=== PATIENT | female | born 1950 | race Caucasian/White ===

== ENCOUNTER 2019-01-13 17:05 | Inpatient (IN) | payer MEDICARE, MEDICAID ==
[~2019-01-13] VITALS: Ht 167.6 cm; Wt 104.5 kg
[~2019-01-13 17:05] MED LIST: ALBU8.5H2 IH; AMLO10TA6 PO; AZI25OT PO; DIPH-681 PO; DOXY100C43 PO; ESCI10TA54 PO; FAMO20TA8 PO; FLUT1BLS3 MT; FURO-150 PO; LISI10TA4 PO; MELA3TAB64 PO; MONT10TA21 PO; POTA8CAP20 PO; PRED5TAB PO; ROFL500T7 PO; SPIIN IH; oxygen INH
[2019-01-13 17:31] LABS: ABG BASE EXCESS 2.3 mmol/L (-2.0-3.0); ABG HCO3 28.5 mmol/L (22.0-26.0); ABG OXYGEN SATURATION 95.3 % (95-98); ABG PCO2 (T) 50.9 mmHg (35.0-45.0); ABG PH (T) 7.366 (7.350-7.450); ALLEN'S TEST Positive; FCOHb 0.8 % (0.5-1.5); FLOW 3 L/min; FMetHb 0.1 % (0.3-1.12); FO2Hb 94.4 % (94-100); TOTAL HEMOGLOBIN 12.7 G/dl (12.0-16.0)
[2019-01-13 17:43] LABS: BASOPHILS % (AUTO) 0.1 % (0-1); EOSINOPHILS % (AUTO) 0.2 % (0-6); HEMATOCRIT 35.7 % (35.0-45.0); HEMOGLOBIN 11.7 g/dl (12.0-16.0); LYMPHOCYTES # (AUTO) 1.5 X10'3 (1.1-4.8); LYMPHOCYTES % (AUTO) 8.3 % (21-51); MEAN CORPUSCULAR HEMOGLOBIN 27.5 PG (27.0-31.0); MEAN CORPUSCULAR HGB CONC 32.7 g/dL (33.0-36.5); MEAN CORPUSCULAR VOLUME 84.1 FL (78-98); MEAN PLATELET VOLUME 6.4 FL (7.4-10.4); MONOCYTES # (AUTO) 0.3 X10'3 (0-0.9); MONOCYTES % (AUTO) 1.6 % (2-12); NEUTROPHILS # (AUTO) 16.5 X10'3 (1.8-7.7); NEUTROPHILS % (AUTO) 89.8 % (42-75); PLATELET COUNT 581 X10'3 (140-440); RED BLOOD COUNT 4.24 X10'6 (4.20-5.60); RED CELL DISTRIBUTION WIDTH 14.6 % (11.5-14.5); WHITE BLOOD COUNT 18.4 X10'3 (4.5-11.0)
[2019-01-13 17:57] LABS: ALANINE AMINOTRANSFERASE 31 U/L (12-78); ALBUMIN 3.4 G/DL (3.4-5.0); ALBUMIN/GLOBULIN RATIO 0.8 (1.1-1.5); ALKALINE PHOSPHATASE 67 IU/L (46-116); ANION GAP 8 (8-16); ASPARTATE AMINO TRANSFERASE 14 U/L (10-37); BILIRUBIN,TOTAL 0.3 MG/DL (0.1-1.0); BLOOD UREA NITROGEN 18 MG/DL (7-18); BUN/CREATININE RATIO 13.4 (6.6-38.0); CALCIUM 9.4 MG/DL (8.5-10.1); CHLORIDE 97 MMOL/L (99-107); CREATININE 1.34 MG/DL (0.40-0.90); GLUCOSE 236 MG/DL (70-104); POTASSIUM 5.1 MMOL/L (3.5-5.1); SODIUM 136 MMOL/L (135-145); TOTAL CARBON DIOXIDE 31.3 MMOL/L (24-32); TOTAL PROTEIN 7.6 G/DL (6.4-8.2); eGFR 39 ML/MIN
[2019-01-13 17:58] LABS: D-DIMER 0.27 MG/L FEU (0-0.50); PARTIAL THROMBOPLASTIN TIME 23 SECONDS (22-32)
[2019-01-13] MEDS ORDERED: CLON0.1T2 PO (18:20)
[2019-01-13] MEDS ORDERED: DULO20CA18 PO (18:20)
[2019-01-13] MEDS ORDERED: LISI-604 PO (18:30)
[2019-01-13] MEDS ORDERED: LANTUS SQ (18:30)
[2019-01-13] MEDS ORDERED: TIOT4MIS3 PO (18:30)
[2019-01-13] MEDS ORDERED: LORA10TA7 PO (18:30)
[2019-01-13] MEDS ORDERED: PRED10TA PO (18:30)
[2019-01-13] MEDS ORDERED: BUSP10TA3 PO (18:30)
[2019-01-13] MEDS ORDERED: FLUT1AER PO (18:33)
[2019-01-13] MEDS ORDERED: dexamethasone sod phosphate 10mg/ml inj IV STA (20:48)
[2019-01-13] MEDS ORDERED: ipratropium/albuterol 3ml nebule NEB ONE (20:50)
--- NOTE | 2019-01-13 21:08 | NUR ---
Break RN; RT at bedside for SVN Tx
[2019-01-13] MEDS ORDERED: potassium CL 10mEq/100ml bag 100 ML IV PRN ×2 (21:40)
[2019-01-13] MEDS ORDERED: potassium Cl 20 mEq SR tablet PO PRN ×4 (21:40)
[2019-01-13] MEDS ORDERED: acetaminophen 325mg tablet PO PRN (21:40)
[2019-01-13] MEDS ORDERED: ondansetron/PF 4mg/2ml inj IV PRN (21:40)
[2019-01-13] MEDS ORDERED: docusate sod 100mg capsule PO PRN (21:40)
[2019-01-13] MEDS ORDERED: mag hydrox/Alum hydrox/simeth 30ml oral suspension PO PRN (21:40)
[2019-01-13] MEDS ORDERED: glucagon, human recombinant 1mg kit SUBCUT PRN (21:50)
[2019-01-13] MEDS ORDERED: MESSAGE TO PHARMACY PO ONE (21:50)
[2019-01-13] MEDS ORDERED: dextrose ORAL solution 15 GM/59 ML bottle PO PRN ×2 (21:50)
[2019-01-13] MEDS ORDERED: dextrose 50%-water 50ml dispensing syringe IV PRN ×2 (21:50)
[2019-01-13 22:19] LABS: HEMOGLOBIN A1C 7.1 % (4.5-6.2)
[2019-01-13 23:00] VITALS: BP 123/50
[2019-01-13] MEDS: normal saline 1000ml 1,000 ML IV SCH ×2 (23:22→23:26)
[2019-01-13] MEDS: methylPREDNISolone sod succ/PF 40mg inj. IV SCH (23:26)
[2019-01-14] MEDS ORDERED: LORazepam 1 MG tablet PO ONE (01:40)
[2019-01-14] MEDS: ipratropium/albuterol 3ml nebule NEB SCH ×3 (02:04→14:00)
[2019-01-14 05:44] LABS: BASOPHILS % (AUTO) 0.1 % (0-1); EOSINOPHILS % (AUTO) 0 % (0-6); HEMATOCRIT 34.9 % (35.0-45.0); HEMOGLOBIN 11.5 g/dl (12.0-16.0); LYMPHOCYTES # (AUTO) 1.4 X10'3 (1.1-4.8); LYMPHOCYTES % (AUTO) 7.6 % (21-51); MEAN CORPUSCULAR HEMOGLOBIN 27.8 PG (27.0-31.0); MEAN CORPUSCULAR HGB CONC 32.9 g/dL (33.0-36.5); MEAN CORPUSCULAR VOLUME 84.3 FL (78-98); MEAN PLATELET VOLUME 6.6 FL (7.4-10.4); MONOCYTES # (AUTO) 0.2 X10'3 (0-0.9); MONOCYTES % (AUTO) 0.9 % (2-12); NEUTROPHILS # (AUTO) 16.7 X10'3 (1.8-7.7); NEUTROPHILS % (AUTO) 91.4 % (42-75); PLATELET COUNT 549 X10'3 (140-440); RED BLOOD COUNT 4.14 X10'6 (4.20-5.60); RED CELL DISTRIBUTION WIDTH 14.2 % (11.5-14.5); WHITE BLOOD COUNT 18.3 X10'3 (4.5-11.0)
[2019-01-14 06:00] LABS: ALANINE AMINOTRANSFERASE 29 U/L (12-78); ALBUMIN 3.1 G/DL (3.4-5.0); ALBUMIN/GLOBULIN RATIO 0.7 (1.1-1.5); ALKALINE PHOSPHATASE 57 IU/L (46-116); ANION GAP 7 (8-16); ASPARTATE AMINO TRANSFERASE 14 U/L (10-37); BILIRUBIN,TOTAL 0.3 MG/DL (0.1-1.0); BLOOD UREA NITROGEN 17 MG/DL (7-18); BUN/CREATININE RATIO 14.4 (6.6-38.0); CHLORIDE 99 MMOL/L (99-107); CREATININE 1.18 MG/DL (0.40-0.90); GLUCOSE 217 MG/DL (70-104); MAGNESIUM 1.6 MG/DL (1.5-2.4); POTASSIUM 4.9 MMOL/L (3.5-5.1); SODIUM 137 MMOL/L (135-145); TOTAL CARBON DIOXIDE 31.3 MMOL/L (24-32); TOTAL PROTEIN 7.3 G/DL (6.4-8.2); eGFR 45 ML/MIN
--- NOTE | 2019-01-14 06:50 | NUR ---
Patient in room [facility]. I have received report from ZAYNAB Bergeron and had the opportunity to ask questions and assume patient care.
[2019-01-14 06:54] LABS: CHOL/HDL RATIO 3.9 (0.00-4.99); CHOLESTEROL 224 MG/DL (0-200); HDL CHOLESTEROL 58 MG/DL (35-60); LDL CHOLESTEROL 151 MG/DL (50-100); TRIGLYCERIDES 118 MG/DL (20-135)
--- NOTE | 2019-01-14 06:54 | NUR ---
Problems reprioritized. Patient report given, questions answered & plan of care reviewed with REANNA. Addendum: 01/14/19 at 0655 by Gal Jones RN Amended: Links added.
[2019-01-14 08:00] VITALS: BP 130/58
[2019-01-14] MEDS ORDERED: furosemide 20MG tablet PO SCH (08:00)
[2019-01-14] MEDS: albuterol 2.5 MG/3 ML nebule NEB SCH ×2 (08:00→19:45)
[2019-01-14] MEDS: Stiolto Respimat Inhal Spray IH SCH (08:00)
[2019-01-14] MEDS: busPIRone 5mg tablet PO SCH ×2 (08:34→20:31)
[2019-01-14] MEDS: DOXYCYCLINE 100MG CAPSULE PO SCH ×2 (08:34→20:33)
[2019-01-14] MEDS: duloxetine 20mg capsule.DR PO SCH (08:34)
[2019-01-14] MEDS: methylPREDNISolone sod succ/PF 40mg inj. IV SCH ×3 (08:34→23:56)
[2019-01-14] MEDS: loratadine 10mg tablet PO SCH (08:34)
[2019-01-14] MEDS: montelukast 10mg tablet PO SCH (08:34)
[2019-01-14] MEDS: cloNIDine 0.1 mg tablet PO SCH ×2 (08:34→20:32)
[2019-01-14] MEDS: ESCITALOPRAM OXALATE 5 MG TABLET PO SCH (08:35)
[2019-01-14] MEDS: enoxaparin 40mg/0.4ml syringe SQ SCH (08:36)
[2019-01-14] MEDS: budesonide 0.5mg/2ml UD nebule IH SCH ×2 (09:13→19:45)
[2019-01-14] MEDS ORDERED: FLU VACC QS2019-20 36MOS UP/PF 60 MCG/0.5 ML SYRINGE IMVAC ONE (10:00)
[2019-01-14] MEDS: furosemide 20 MG/2 ML vial IV SCH ×2 (10:30→20:31)
[2019-01-14 12:00] VITALS: BP 150/60
--- NOTE | 2019-01-14 15:20 | NUR ---
DM consult: Patient's A1c is 7.1. Per documented hx patient's A1c generally ranges 5.2-6.3. Attempted visit with pt at bedside however pt was unavailable. Per RT note pt requesting to sleep at this time. Will f/u with pt at another time to provide DM education with referral to outpatient DM class. Pt currently on heart healthy CHO controlled diet, pending documentation of PO intake. Will continue to follow. Addendum: 01/14/19 at [address] Amended: Links added.
--- NOTE | 2019-01-14 18:27 | NUR ---
Problems reprioritized. Patient report given, questions answered & plan of care reviewed with ZAYNAB Bergeron.
[2019-01-14 18:40] VITALS: BP 159/78
[2019-01-14] MEDS: lactobacillus rhamnosus 10,000 MMU CELLS/CAPSULE PO SCH (20:38)
[2019-01-14] MEDS: lisinopril 10 MG tablet PO SCH (20:38)
[2019-01-14] MEDS: Melatonin 3mg tablet PO SCH (20:38)
[2019-01-14] MEDS: insulin glargine (Lantus) pen - multi-dose SQ SCH (22:42)
[2019-01-15] VITALS: BP 152/68
[2019-01-15] MEDS: albuterol 2.5 MG/3 ML nebule NEB SCH (02:00)
[2019-01-15] MEDS: ipratropium/albuterol 3ml nebule NEB SCH ×5 (02:03→20:34)
[2019-01-15] MEDS ORDERED: albuterol 2.5 MG/3 ML nebule NEB PRN (02:40)
[2019-01-15 05:15] LABS: BASOPHILS % (AUTO) 0 % (0-1); EOSINOPHILS % (AUTO) 0 % (0-6); HEMATOCRIT 33.6 % (35.0-45.0); LYMPHOCYTES # (AUTO) 1.4 X10'3 (1.1-4.8); LYMPHOCYTES % (AUTO) 6.2 % (21-51); MEAN CORPUSCULAR HEMOGLOBIN 27.5 PG (27.0-31.0); MEAN CORPUSCULAR HGB CONC 32.8 g/dL (33.0-36.5); MEAN CORPUSCULAR VOLUME 83.6 FL (78-98); MEAN PLATELET VOLUME 6.5 FL (7.4-10.4); MONOCYTES # (AUTO) 0.6 X10'3 (0-0.9); MONOCYTES % (AUTO) 2.5 % (2-12); NEUTROPHILS # (AUTO) 20.9 X10'3 (1.8-7.7); NEUTROPHILS % (AUTO) 91.3 % (42-75); PLATELET COUNT 577 X10'3 (140-440); RED BLOOD COUNT 4.01 X10'6 (4.20-5.60); RED CELL DISTRIBUTION WIDTH 14.3 % (11.5-14.5); WHITE BLOOD COUNT 22.9 X10'3 (4.5-11.0)
[2019-01-15 05:45] LABS: ALANINE AMINOTRANSFERASE 26 U/L (12-78); ALBUMIN 3.1 G/DL (3.4-5.0); ALBUMIN/GLOBULIN RATIO 0.8 (1.1-1.5); ALKALINE PHOSPHATASE 51 IU/L (46-116); ANION GAP 6 (8-16); ASPARTATE AMINO TRANSFERASE 13 U/L (10-37); BILIRUBIN,TOTAL 0.4 MG/DL (0.1-1.0); BLOOD UREA NITROGEN 24 MG/DL (7-18); BUN/CREATININE RATIO 23.3 (6.6-38.0); CALCIUM 8.7 MG/DL (8.5-10.1); CHLORIDE 98 MMOL/L (99-107); CREATININE 1.03 MG/DL (0.40-0.90); GLUCOSE 180 MG/DL (70-104); MAGNESIUM 1.7 MG/DL (1.5-2.4); POTASSIUM 4.6 MMOL/L (3.5-5.1); SODIUM 136 MMOL/L (135-145); TOTAL CARBON DIOXIDE 32.4 MMOL/L (24-32); eGFR 53 ML/MIN
--- NOTE | 2019-01-15 06:50 | NUR ---
Problems reprioritized. Patient report given, questions answered & plan of care reviewed with REANNA. Addendum: 01/15/19 at 0650 by Gal Jones RN Amended: Links added.
--- NOTE | 2019-01-15 06:50 | NUR ---
Patient in room [facility]. I have received report from ZAYNAB Bergeron and had the opportunity to ask questions and assume patient care.
[2019-01-15] MEDS: budesonide 0.5mg/2ml UD nebule IH SCH ×2 (07:22→20:33)
[2019-01-15 08:00] VITALS: BP 117/73
[2019-01-15] MEDS ORDERED: enoxaparin 40mg/0.4ml syringe SUBCUT SCH (08:00)
[2019-01-15] MEDS: Stiolto Respimat Inhal Spray IH SCH (08:00)
[2019-01-15] MEDS: cloNIDine 0.1 mg tablet PO SCH ×2 (08:32→20:54)
[2019-01-15] MEDS: busPIRone 5mg tablet PO SCH ×2 (08:32→20:55)
[2019-01-15] MEDS: loratadine 10mg tablet PO SCH (08:33)
[2019-01-15] MEDS: lactobacillus rhamnosus 10,000 MMU CELLS/CAPSULE PO SCH ×2 (08:33→20:54)
[2019-01-15] MEDS: duloxetine 20mg capsule.DR PO SCH (08:33)
[2019-01-15] MEDS: ESCITALOPRAM OXALATE 5 MG TABLET PO SCH (08:34)
[2019-01-15] MEDS: montelukast 10mg tablet PO SCH (08:34)
[2019-01-15] MEDS: DOXYCYCLINE 100MG CAPSULE PO SCH ×2 (08:35→20:55)
[2019-01-15] MEDS: enoxaparin 40mg/0.4ml syringe SQ SCH (08:37)
[2019-01-15] MEDS: furosemide 20 MG/2 ML vial IV SCH ×2 (08:38→20:55)
[2019-01-15] MEDS: methylPREDNISolone sod succ/PF 40mg inj. IV SCH ×2 (08:38→16:53)
[2019-01-15] MEDS: insulin Lispro (HumaLOG) vial - multi-dose SQ SCH ×3 (08:52→18:05)
[2019-01-15 12:00] VITALS: BP 129/63
--- NOTE | 2019-01-15 16:34 | NUR ---
F/U for DM consult: Pt seen at bedside states she believes her A1c has increased r/t high stress and adjustments made to home Prednisone rx. Pt provided with written and verbal DM education with referral to outpatient DM class and RD contact information. Pt endorses a good appetite which is evident with documented 75-100% PO intake on heart healthy CHO controlled diet meeting nutrient needs. Pt states she doesn't have any issues with dairy other than gets diarrhea if she consumes milk. Pt requests no milk to drink and would like Swedish yogurt BIDLD. LBM 01/14 however pt reports no BM since admit and requests prune juice with breakfast tomorrow. All food preferences d/w dietary. Will continue to follow. Addendum: 01/15/19 at [address] Amended: Links added.
[2019-01-15] MEDS: acetaminophen 325mg tablet PO PRN (17:25)
[2019-01-15 18:00] VITALS: BP 126/54
--- NOTE | 2019-01-15 18:44 | NUR ---
Problems reprioritized. Patient report given, questions answered & plan of care reviewed with ZAYNAB Guevara.
--- NOTE | 2019-01-15 18:46 | NUR ---
Patient in room [facility]. I have received report from ZAYNAB Shaver and had the opportunity to ask questions and assume patient care.
[2019-01-15] MEDS: lisinopril 10 MG tablet PO SCH (20:54)
[2019-01-15] MEDS: Melatonin 3mg tablet PO SCH (20:54)
[2019-01-15] MEDS: insulin glargine (Lantus) pen - multi-dose SQ SCH (21:07)
[2019-01-15] MEDS ORDERED: LORazepam 0.5 MG tablet PO PRN (21:25)
[2019-01-16] VITALS: BP 141/68
[2019-01-16] MEDS: methylPREDNISolone sod succ/PF 40mg inj. IV SCH ×2 (00:28→08:29)
[2019-01-16] MEDS: ipratropium/albuterol 3ml nebule NEB SCH ×3 (02:42→14:28)
[2019-01-16 05:55] LABS: EOSINOPHILS % (AUTO) 0 % (0-6); HEMATOCRIT 35.7 % (35.0-45.0); MONOCYTES # (AUTO) 0.6 X10'3 (0-0.9)
[2019-01-16 05:57] LABS: BASOPHILS % (AUTO) 0 % (0-1); HEMOGLOBIN 11.7 g/dl (12.0-16.0); LYMPHOCYTES # (AUTO) 1.2 X10'3 (1.1-4.8); LYMPHOCYTES % (AUTO) 5.3 % (21-51); MEAN CORPUSCULAR HEMOGLOBIN 27.2 PG (27.0-31.0); MEAN CORPUSCULAR HGB CONC 32.7 g/dL (33.0-36.5); MEAN CORPUSCULAR VOLUME 83.1 FL (78-98); MEAN PLATELET VOLUME 6.4 FL (7.4-10.4); MONOCYTES % (AUTO) 2.9 % (2-12); NEUTROPHILS # (AUTO) 20.1 X10'3 (1.8-7.7); NEUTROPHILS % (AUTO) 91.8 % (42-75); PLATELET COUNT 607 X10'3 (140-440); RED BLOOD COUNT 4.29 X10'6 (4.20-5.60); RED CELL DISTRIBUTION WIDTH 14.3 % (11.5-14.5); WHITE BLOOD COUNT 21.9 X10'3 (4.5-11.0)
[2019-01-16 06:08] LABS: ALANINE AMINOTRANSFERASE 30 U/L (12-78); ALBUMIN 3.3 G/DL (3.4-5.0); ALBUMIN/GLOBULIN RATIO 0.8 (1.1-1.5); ALKALINE PHOSPHATASE 54 IU/L (46-116); ANION GAP 6 (8-16); ASPARTATE AMINO TRANSFERASE 15 U/L (10-37); BILIRUBIN,TOTAL 0.3 MG/DL (0.1-1.0); BLOOD UREA NITROGEN 27 MG/DL (7-18); BUN/CREATININE RATIO 25.5 (6.6-38.0); CALCIUM 8.7 MG/DL (8.5-10.1); CHLORIDE 96 MMOL/L (99-107); CREATININE 1.06 MG/DL (0.40-0.90); GLUCOSE 165 MG/DL (70-104); MAGNESIUM 1.8 MG/DL (1.5-2.4); POTASSIUM 4.1 MMOL/L (3.5-5.1); SODIUM 135 MMOL/L (135-145); TOTAL CARBON DIOXIDE 33.2 MMOL/L (24-32); TOTAL PROTEIN 7.4 G/DL (6.4-8.2); eGFR 51 ML/MIN
--- NOTE | 2019-01-16 06:20 | NUR ---
Problems reprioritized. Patient report given, questions answered & plan of care reviewed with ZAYNAB Fragoso.
--- NOTE | 2019-01-16 06:30 | NUR ---
Patient in room [facility]. I have received report from Fouzia WORTHY and had the opportunity to ask questions and assume patient care.
--- NOTE | 2019-01-16 07:04 | NUR ---
Patient in room [facility]. I have received report from Ismael WORTHY and had the opportunity to ask questions and assume patient care.
[2019-01-16 08:00] VITALS: BP 146/70
[2019-01-16] MEDS: duloxetine 20mg capsule.DR PO SCH (08:00)
[2019-01-16] MEDS: Stiolto Respimat Inhal Spray IH SCH (08:00)
[2019-01-16] MEDS: furosemide 20 MG/2 ML vial IV SCH (08:28)
[2019-01-16] MEDS: busPIRone 5mg tablet PO SCH (08:29)
[2019-01-16] MEDS: cloNIDine 0.1 mg tablet PO SCH (08:29)
[2019-01-16] MEDS: lactobacillus rhamnosus 10,000 MMU CELLS/CAPSULE PO SCH (08:30)
[2019-01-16] MEDS: loratadine 10mg tablet PO SCH (08:30)
[2019-01-16] MEDS: ESCITALOPRAM OXALATE 5 MG TABLET PO SCH (08:31)
[2019-01-16] MEDS: DOXYCYCLINE 100MG CAPSULE PO SCH (08:32)
[2019-01-16] MEDS: montelukast 10mg tablet PO SCH (08:32)
[2019-01-16] MEDS: enoxaparin 40mg/0.4ml syringe SQ SCH (08:34)
[2019-01-16] MEDS: insulin Lispro (HumaLOG) vial - multi-dose SQ SCH ×2 (08:59→13:31)
[2019-01-16] MEDS: acetaminophen 325mg tablet PO PRN (09:01)
[2019-01-16] MEDS: budesonide 0.5mg/2ml UD nebule IH SCH (09:14)
--- NOTE | 2019-01-16 10:39 | NUR ---
Initial: Pt admit with COPD exacerbation slowly improving per MD notes. Pt currently on heart healthy CHO controlled diet documented with 75% PO intake likely closely meeting nutrient needs. LBM 01/14 with Colace PRN and received prune juice this morning. No edema or wounds. No nutrition diagnosis at this time. Will continue to follow. Recommendations: 1) Continue heart healthy CHO controlled diet 2) [place] yogurt BIDLD; no milk to drink 3) Bowel care 4) Wt per rx Addendum: 01/16/19 at [address] Amended: Links added.
[2019-01-16 11:00] VITALS: BP 151/60
--- NOTE | 2019-01-16 14:33 | NUR ---
I have reviewed and agree with all medications administered and interventions performed by HR ASSISTANT Student Yonathan Epps
--- NOTE | 2019-01-16 15:30 | NUR ---
Problems reprioritized. Patient report given, questions answered & plan of care reviewed with Jim WORTHY AT [facility].
--- NOTE | 2019-01-16 15:35 | NUR ---
PT DC TO [facility], PT'S BELONGING PACKED AND TAKED BY [employer]. DERIAN WORTHY FROM [facility] WANTED IV LEFT IN PT SO THEY CAN ADMINISTER MEDS. IV DATED 01/13 [facility]'S NURSE AWARE. IV PORTS CAPPED AND TAPED FOR TRANSPORT. GEOSPATIAL SCIENTIST TAKEN PT'S INFORMATION IN A MANILA ENVELOPED WITH SPECIFIC INSTRUCTIONS.
--- NOTE | 2019-01-16 17:38 | NUR ---
Student documentation: I have reviewed interventions, assessments performed and documented by Cruzito ARANGO
== END 2019-01-16 15:12 | DRG 189 ==
LOC: ER 17:06 → ED HOLD 21:50 → EDBEDREQ 22:13 → SUR 3N 22:20
PROVIDERS: ADMIT Family Medicine; ATTEND Internal Medicine
PROC: 3E02340 Introduction of Influenza Vaccine into Muscle, Percutaneous Approach (ICD-10-PCS; principal; 2019-01-14)
PROC: 5A09357 Assistance with Respiratory Ventilation, Less than 24 Consecutive Hours, Continuous Positive Airway Pressure (ICD-10-PCS; 2019-01-14)
PROC: 5A09357 Assistance with Respiratory Ventilation, Less than 24 Consecutive Hours, Continuous Positive Airway Pressure (ICD-10-PCS; 2019-01-15)
PROC: 5A09357 Assistance with Respiratory Ventilation, Less than 24 Consecutive Hours, Continuous Positive Airway Pressure (ICD-10-PCS; 2019-01-16)
DX: J96.21 Acute and chronic respiratory failure with hypoxia (principal); N17.9 Acute kidney failure, unspecified; J44.1 Chronic obstructive pulmonary disease with (acute) exacerbation; E87.2 Acidosis; E87.3 Alkalosis; E87.4 Mixed disorder of acid-base balance; I13.0 Hypertensive heart and chronic kidney disease with heart failure and stage 1 through stage 4 chronic kidney disease, or unspecified chronic kidney disease; I48.92 Unspecified atrial flutter; J44.0 Chronic obstructive pulmonary disease with (acute) lower respiratory infection; J20.9 Acute bronchitis, unspecified; K21.9 Gastro-esophageal reflux disease without esophagitis; F32.9 Major depressive disorder, single episode, unspecified; M19.90 Unspecified osteoarthritis, unspecified site; I27.81 Cor pulmonale (chronic); I50.813 Acute on chronic right heart failure; E11.22 Type 2 diabetes mellitus with diabetic chronic kidney disease; N18.3 Chronic kidney disease, stage 3 (moderate); E11.40 Type 2 diabetes mellitus with diabetic neuropathy, unspecified; E11.21 Type 2 diabetes mellitus with diabetic nephropathy; E78.00 Pure hypercholesterolemia, unspecified; E78.5 Hyperlipidemia, unspecified; F41.9 Anxiety disorder, unspecified; Z99.81 Dependence on supplemental oxygen; Z23 Encounter for immunization; Z79.4 Long term (current) use of insulin; Z79.899 Other long term (current) drug therapy; Z82.49 Family history of ischemic heart disease and other diseases of the circulatory system; Z82.5 Family history of asthma and other chronic lower respiratory diseases; Z87.891 Personal history of nicotine dependence; Z56.0 Unemployment, unspecified
CPT/HCPCS: 36415; 36600; 71045; 80053; 80061; 82803; 82948; 83036; 83735; 83880; 84484; 85018; 85025; 85379; 85610; 85730; 87081; 93005; 94640; 94760; 97110; 97116; 97162; G0378; J1100; J1650; J1815; J1940; J2920; J7030; J7626; Q2037